=== PATIENT | male | born 1980 | race Hispanic/Latino ===

== ENCOUNTER 2017-09-16 20:49 | Emergency (ER) | payer OTHER ==
[~2017-09-16] VITALS: Ht 172.7 cm; Wt 98.6 kg
[2017-09-16] MEDS ORDERED: ONDANSETRON HCL INJ 2 MG/ML VIAL IV STA (21:19)
[2017-09-16] MEDS ORDERED: KETOROLAC TROMETHAMINE 30 MG/ML VIAL IV STA (21:19)
[2017-09-16] MEDS ORDERED: SODIUM CHLORIDE 0.9% 1000ML 1,000 ML IV ONE (21:30)
[2017-09-16] MEDS ORDERED: FENTANYL CITRATE/PF 100MCG/2 ML INJ IV ONE (21:30)
[2017-09-16] MEDS ORDERED: HYDROCODONE/APAP 5MG-325MG TAB PO ONE (22:30)
[2017-09-16 23:18] VITALS: BP 165/89
== END 2017-09-16 23:40 | disposition home or self-care (01) ==
LOC: ER 20:49 → FSED 23:40
DX: G44.021 Chronic cluster headache, intractable (principal)
CPT/HCPCS: 99283; J1885; J2405; J7030

== ENCOUNTER 2018-04-17 12:23 | Emergency (ER) | payer SELFPAY ==
[~2018-04-17] VITALS: Ht 172.7 cm; Wt 98.4 kg
[2018-04-17] MEDS ORDERED: KETOROLAC TROMETHAMINE 30 MG/ML VIAL IV STA (12:31)
[2018-04-17] MEDS ORDERED: SODIUM CHLORIDE 0.9% 1000ML 1,000 ML IV ONE (12:45)
[2018-04-17] MEDS ORDERED: METOCLOPRAMIDE HCL 10 MG/2ML VIAL IV ONE (12:45)
== END 2018-04-17 16:00 | disposition home or self-care (01) ==
LOC: FSED 12:23
DX: G44.019 Episodic cluster headache, not intractable (principal)
CPT/HCPCS: 99284; J1885; J2765; J7030

== ENCOUNTER 2018-05-11 18:55 | Emergency (ER) | payer BC, OTHER ==
[~2018-05-11] VITALS: Ht 172.7 cm; Wt 97.5 kg
== END 2018-05-11 20:05 | disposition home or self-care (01) ==
LOC: FSED 18:55
DX: R50.9 Fever, unspecified (principal); R05 Cough; J11.1 Influenza due to unidentified influenza virus with other respiratory manifestations; B34.9 Viral infection, unspecified
CPT/HCPCS: 87400; 99282

== ENCOUNTER 2018-09-26 18:40 | Emergency (ER) | payer BC ==
[~2018-09-26] VITALS: Ht 172.7 cm; Wt 97.5 kg
[2018-09-26] MEDS ORDERED: IBUPROFEN 600 MG TAB PO ONE (19:01)
--- NOTE | 2018-09-26 19:30 | Diagnostic Imaging Report ---
Exam: Left foot 3 views History: Pain Comparison: None. Findings: No fracture or malalignment. Joint spaces preserved. No abnormal soft tissue calcification or soft tissue defect. Impression: No acute osseous abnormality Signed by: Dr. Avni Wiley M.D. on 09/26/2018 7:27 PM
[2018-09-26] MEDS ORDERED: IBUPROFEN 200 MG TAB ONE (19:31)
== END 2018-09-26 20:15 | disposition home or self-care (01) ==
LOC: FSED 18:40
DX: B35.3 Tinea pedis (principal); B35.6 Tinea cruris; B35.1 Tinea unguium
CPT/HCPCS: 36415; 80048; 80076; 84550; 85025; 99283

== ENCOUNTER 2018-12-17 18:54 | Emergency (ER) | payer BC ==
[~2018-12-17] VITALS: Ht 172.7 cm; Wt 95.3 kg
--- OUTSIDE RECORDS SUMMARY | 2018-12-17 18:57 | XMS REPORT ---
Author [facility] Address Unknown Phone Unavailable Care Team Providers [employer] Engineer Name Role Phone CHAD MCKEE Unavailable Unavailable Problems This patient has no known problems. Allergies, Adverse Reactions, Alerts This patient has no known allergies or adverse reactions. Medications This patient has no known medications. Results Test Description Test Time Test Comments Text Results Atomic Results Result Comments FOOT 3 VIEW [facility] 2018-09-26 19:25:00 [place] [address] Patient Name: YAJAIRA TRACY MR #: [id number] : 1980 Age/Sex: 38/M Req #: [id number] Adm Physician: Ordered by: CHAD MCKEE MD Report #: [id number] Location: [facility] Room/Bed: Procedure: [id number] HOPD/FOOT 3 VIEW - [facility] Exam Date: 09/26/18 Exam Time: 1914 REPORT STATUS: Signed Exam: Left foot 3 views History: Pain Comparison: None. Findings: No fracture or malalignment. Joint spaces preserved. No abnormal soft tissue calcification or soft tissue defect. Impression: No acute osseous abnormality Signed by: Dr. Claudette Stiles M.D. on 09/26/2018 7:27 PM Dictated By: CLAUDETTE STILES MD 26 Transcribed By: BOY on 09/26/181926 COPY TO: CHAD MCKEE MD
[2018-12-17] MEDS ORDERED: TYLENOL WITH C1 EACH PO (19:57)
[2018-12-17] MEDS ORDERED: AUGMENTIN 875-1 EACH PO (19:57)
== END 2018-12-17 20:06 | disposition home or self-care (01) ==
LOC: FSED 18:54
DX: K08.89 Other specified disorders of teeth and supporting structures (principal); K02.9 Dental caries, unspecified
CPT/HCPCS: 99282

== ENCOUNTER 2019-02-13 15:07 | Emergency (ER) | payer BC ==
[~2019-02-13] VITALS: Ht 172.7 cm; Wt 97.5 kg
[~2019-02-13 15:07] MED LIST: AUGMENTIN 875-1 EACH PO; TYLENOL WITH C1 EACH PO
[2019-02-13] MEDS ORDERED: NAPROSYN500 MG PO (16:15)
[2019-02-13] MEDS ORDERED: AUGMENTIN 875-1 EACH PO (16:15)
[2019-02-13 16:53] VITALS: BP 132/78
== END 2019-02-13 16:56 | disposition home or self-care (01) ==
LOC: FSED 15:07
DX: L03.011 Cellulitis of right finger (principal)
CPT/HCPCS: 26010; 87071; 87186; 87205; 99283

== ENCOUNTER 2019-03-22 01:42 | Emergency (ER) | payer BC ==
[~2019-03-22] VITALS: Ht 172.7 cm; Wt 90.7 kg
[~2019-03-22 01:42] MED LIST changes: +NAPROSYN500 MG PO
[2019-03-22] MEDS ORDERED: KETOROLAC TROMETHAMINE 30 MG/ML VIAL IV STA (02:01)
[2019-03-22] MEDS ORDERED: KETOROLAC TROMETHAMINE 30 MG/ML VIAL ONE (02:09)
[2019-03-22] MEDS ORDERED: DEXAMETHASONE SOD PHOS 10 MG/1 ML VIAL ONE (02:09)
[2019-03-22] MEDS ORDERED: SODIUM CHLORIDE 0.9% 1000ML 1,000 ML ONE (02:09)
[2019-03-22] MEDS ORDERED: PROMETHAZINE HCL (IM) 25 MG/ML VIAL ONE (02:09)
[2019-03-22] MEDS ORDERED: ONDANSETRON ODT8 MG PO (02:10)
[2019-03-22] MEDS ORDERED: SODIUM CHLORIDE 0.9% 1000ML 1,000 ML IV SCH (02:15)
[2019-03-22] MEDS ORDERED: PROMETHAZINE 12.5MG/ NACL 0.9% 12.5 MG/50 ML BAG IV ONE (02:15)
[2019-03-22] MEDS ORDERED: DEXAMETHASONE SOD PHOS 10 MG/1 ML VIAL IV ONE (02:15)
[2019-03-22] MEDS ORDERED: MAGNESIUM SULFATE 2GM/50ML 50 ML IV ONE ×2 (02:40→02:45)
[2019-03-22] MEDS ORDERED: SUMATRIPTAN SUCCINATE 6 MG/0.5 ML VIAL SC ONE (03:00)
[2019-03-22] MEDS ORDERED: LIDOCAINE HCL 1% LOCAL INJ 20 ML VIAL INJ ONE (03:00)
[2019-03-22] MEDS ORDERED: SUMATRIPTAN SUCCINATE 6 MG/0.5 ML VIAL ONE (03:00)
== END 2019-03-22 03:28 | disposition home or self-care (01) ==
LOC: FSED 01:42
DX: G44.011 Episodic cluster headache, intractable (principal)
CPT/HCPCS: 99283; J1100; J1885; J2550; J3030; J3475; J7030

== ENCOUNTER 2019-03-27 18:27 | Emergency (ER) | payer BC ==
[~2019-03-27] VITALS: Ht 172.7 cm; Wt 90.7 kg
[~2019-03-27 18:27] MED LIST changes: +ONDANSETRON ODT8 MG PO
[2019-03-27] MEDS ORDERED: SODIUM CHLORIDE 0.9% 1000ML 1,000 ML IV STA (19:42)
--- NOTE | 2019-03-27 19:42 | NUR ---
PT ON MULTIPLE MEDICATIONS FOR MIGRAINES, STATES USUALLY WORK BUT HAS HAD A MIGRAINE NOW FOR PAST 4 HOURS AND NOTHING HELPING, HAS BEEN HERE SEVERAL TIMES FOR BREAKTHROUGH [facility] AND HE GET "SHOTS" AND EVERYTHING HELPS? ALTHOUGH STATES LAST VISIT HERE NOTHING HELPED, PT WAS HERE 5 DAYS AGO 03/22.
[2019-03-27] MEDS ORDERED: PROMETHAZINE 25MG/ NS 50ML (IV) IV ONE (19:45)
[2019-03-27] MEDS ORDERED: DIPHENHYDRAMINE HCL INJ 50 MG/ML VIAL IV ONE (19:45)
[2019-03-27] MEDS ORDERED: KETOROLAC TROMETHAMINE 30 MG/ML VIAL IV ONE (19:45)
[2019-03-27] MEDS ORDERED: DEXAMETHASONE SOD PHOS 10 MG/1 ML VIAL IV ONE (19:45)
[2019-03-27] MEDS ORDERED: KETOROLAC TROMETHAMINE 30 MG/ML VIAL ONE (20:01)
[2019-03-27] MEDS ORDERED: DIPHENHYDRAMINE HCL INJ 50 MG/ML VIAL ONE (20:01)
[2019-03-27] MEDS ORDERED: SODIUM CHLORIDE 0.9% 1000ML 1,000 ML ONE (20:01)
[2019-03-27] MEDS ORDERED: PROMETHAZINE HCL (IM) 25 MG/ML VIAL ONE (20:01)
== END 2019-03-27 21:20 | disposition home or self-care (01) ==
LOC: FSED 18:27
DX: G43.011 Migraine without aura, intractable, with status migrainosus (principal)
CPT/HCPCS: 80053; 85025; 99283; J1100; J1200; J1885; J2550; J7030

== ENCOUNTER 2020-11-09 19:46 | Emergency (ER) | payer BC ==
[~2020-11-09] VITALS: Ht 172.7 cm; Wt 97.5 kg
[2020-11-09] MEDS ORDERED: SODIUM CHLORIDE 0.9% 1000ML 1,000 ML IV STA (20:42)
[2020-11-09] MEDS ORDERED: ONDANSETRON HCL INJ 2MG/ML 2ML 2 MG/ML VIAL IV STA (20:42)
[2020-11-09] MEDS ORDERED: MORPHINE SULFATE 5 MG/ML VIAL IV ONE (20:45)
[2020-11-09] MEDS ORDERED: DEXAMETHASONE SOD PHOS 10 MG/1 ML VIAL IV ONE (20:45)
[2020-11-09] MEDS ORDERED: DEXAMETHASONE SOD PHOS INJ 4 MG/ML VIAL ONE (21:01)
[2020-11-09] MEDS ORDERED: MORPHINE SULFATE INJ 4 MG/ML INJ 1ML ONE (21:01)
[2020-11-09] MEDS ORDERED: ONDANSETRON HCL INJ 2MG/ML 2ML 2 MG/ML VIAL ONE (21:01)
[2020-11-09] MEDS ORDERED: SODIUM CHLORIDE 0.9% 1000ML 1,000 ML ONE (21:02)
[2020-11-09] MEDS ORDERED: PREDNISONE20 MG PO (21:52)
[2020-11-09] MEDS ORDERED: FIORICET 50-301 EACH PEG (21:52)
[2020-11-09] MEDS ORDERED: ONDANSETRON ODT4 MG PO (21:52)
[2020-11-09 22:02] VITALS: BP 149/84
== END 2020-11-09 22:02 | disposition home or self-care (01) ==
LOC: FSED 20:17
DX: G44.009 Cluster headache syndrome, unspecified, not intractable (principal)
CPT/HCPCS: 96374; 96375; 96376; 99283; J1100 ×2; J2270 ×2; J2405; J7030

== ENCOUNTER 2022-07-24 18:10 | Emergency (ER) | payer OTHER ==
[~2022-07-24] VITALS: Ht 172.7 cm; Wt 99.8 kg
[~2022-07-24 18:10] MED LIST changes: +FIORICET 50-301 EACH PEG; +ONDANSETRON ODT4 MG PO; +PREDNISONE20 MG PO
[2022-07-24] MEDS ORDERED: SODIUM CHLORIDE 0.9% 1000ML 1,000 ML IV SCH (19:15)
[2022-07-24] MEDS ORDERED: METOCLOPRAMIDE HCL 10 MG/2ML VIAL IV ONE (19:15)
[2022-07-24] MEDS ORDERED: KETOROLAC TROMETHAMINE 30 MG/ML VIAL IV STA (19:15)
[2022-07-24] MEDS ORDERED: DIPHENHYDRAMINE HCL INJ 50 MG/ML VIAL IV ONE (19:15)
[2022-07-24] MEDS ORDERED: METOCLOPRAMIDE HCL 10 MG/2ML VIAL ONE (19:21)
[2022-07-24] MEDS ORDERED: DIPHENHYDRAMINE HCL INJ 50 MG/ML VIAL ONE (19:21)
[2022-07-24] MEDS ORDERED: KETOROLAC TROMETHAMINE 30 MG/ML VIAL ONE (19:21)
[2022-07-24] MEDS ORDERED: SODIUM CHLORIDE 0.9% 1000ML 1,000 ML ONE (19:22)
[2022-07-24] MEDS ORDERED: ONDANSETRON ODT4 MG PO (20:40)
[2022-07-24] MEDS ORDERED: FIORICET 50-301 EACH PO (20:40)
== END 2022-07-24 21:09 | disposition home or self-care (01) ==
LOC: FSED 18:17
DX: R11.2 Nausea with vomiting, unspecified (principal); G43.909 Migraine, unspecified, not intractable, without status migrainosus; F17.210 Nicotine dependence, cigarettes, uncomplicated
CPT/HCPCS: 99283; J1200; J1885; J2765; J7030

== ENCOUNTER 2022-07-31 05:39 | Emergency (ER) | payer OTHER ==
[~2022-07-31] VITALS: Ht 172.7 cm; Wt 105.2 kg
[~2022-07-31 05:39] MED LIST changes: +FIORICET 50-301 EACH PO
[2022-07-31] MEDS ORDERED: KETOROLAC TROMETHAMINE 30 MG/ML VIAL IV STA (06:04)
[2022-07-31] MEDS ORDERED: KETOROLAC TROMETHAMINE 30 MG/ML VIAL ONE ×2 (06:14→06:55)
[2022-07-31] MEDS ORDERED: METOCLOPRAMIDE HCL 10 MG/2ML VIAL ONE (06:14)
[2022-07-31] MEDS ORDERED: DIPHENHYDRAMINE HCL INJ 50 MG/ML VIAL ONE ×2 (06:14→06:55)
[2022-07-31] MEDS ORDERED: METHYLPREDNISOLONE SOD SUCC 125 MG/2ML VIAL ONE (06:14)
[2022-07-31] MEDS ORDERED: SODIUM CHLORIDE 0.9% 1000ML 1,000 ML IV SCH (06:15)
[2022-07-31] MEDS ORDERED: DIPHENHYDRAMINE HCL INJ 50 MG/ML VIAL IV ONE ×2 (06:15→07:00)
[2022-07-31] MEDS ORDERED: METHYLPREDNISOLONE SOD SUCC 125 MG/2ML VIAL IV ONE (06:15)
[2022-07-31] MEDS ORDERED: SODIUM CHLORIDE 0.9% 1000ML 1,000 ML ONE (06:15)
[2022-07-31] MEDS ORDERED: METOCLOPRAMIDE HCL 10 MG/2ML VIAL IV ONE (06:15)
[2022-07-31] MEDS ORDERED: ONDANSETRON ODT4 MG PO (06:39)
[2022-07-31] MEDS ORDERED: IMITREX50 MG PO (06:39)
[2022-07-31] MEDS ORDERED: KETOROLAC TROMETHAMINE 30 MG/ML VIAL IV SCH (07:00)
== END 2022-07-31 07:11 | disposition home or self-care (01) ==
LOC: FSED 05:59
DX: G43.909 Migraine, unspecified, not intractable, without status migrainosus (principal); R11.2 Nausea with vomiting, unspecified; F17.210 Nicotine dependence, cigarettes, uncomplicated
CPT/HCPCS: 96374; 96375; 96376; 99283; J1200; J1885; J2765; J2930; J7030